=== PATIENT | female | born 1935 | race Two or more races ===

== ENCOUNTER 2021-07-17 12:36 | Inpatient (IN) | payer MEDICARE, OTHER ==
[~2021-07-17] VITALS: Ht 170.2 cm; Wt 79.4 kg
--- NOTE | 2021-07-17 12:40 | NUR ---
[id number], from [facility], low bp 70's, BS 146. on room air, breathing evenly and unlabored. Connected to the monitor and pulse ox. Kept comfortable, will continue to monitor accordingly.
--- NOTE | 2021-07-17 13:00 | NUR ---
IV LINE ESTABLISHED BLOOD DRAWN AND SENT TO LAB.
[2021-07-17 13:19] LABS: BASOPHILS % (AUTO) 0.2 % (0.0-2.0); EOSINOPHILS % (AUTO) 3.5 % (0.0-6.0); HEMATOCRIT 37 % (33-45); HEMOGLOBIN 11.7 g/dL (11.5-14.8); LYMPHOCYTES # (AUTO) 0.9 K/uL (0.8-4.8); LYMPHOCYTES % (AUTO) 11.5 % (20.0-44.0); MEAN CORPUSCULAR HGB CONC 32 g/dl (31.0-36.0); MEAN CORPUSCULAR VOLUME 90 fL (82-100); MONOCYTES # (AUTO) 0.6 K/uL (0.1-1.30); MONOCYTES % (AUTO) 7.6 % (2.0-12.0); NEUTROPHILS # (AUTO) 6.3 K/uL (1.8-8.9); NEUTROPHILS % (AUTO) 77.2 % (43.0-81.0); PLATELET COUNT (AUTO) 146 K/uL (150-450); RED BLOOD CELL COUNT(AUTO) 4.09 MIL/uL (4.0-5.2); WHITE BLOOD COUNT (AUTO) 8.2 K/uL (4.3-11.0)
[2021-07-17 13:38] LABS: ALANINE AMINOTRANSFERASE 20 U/L (12-78); ALBUMIN 2.9 g/dL (3.4-5.0); ALKALINE PHOSPHATASE 64 U/L (46-116); ASPARTATE AMINOTRANSFERASE 19 U/L (15-37); BILIRUBIN,DIRECT 0.1 mg/dL (0.0-0.2); BILIRUBIN,TOTAL 0.5 mg/dL (0.2-1.0); CALCIUM, SERUM 8.8 mg/dL (8.5-10.1); CARBON DIOXIDE 29 mmol/L (21-32); CREATININE 3.4 mg/dL (0.6-1.3); GLUCOSE 118 mg/dL (74-106); TOTAL PROTEIN, SERUM 7.3 g/dL (6.4-8.2)
[2021-07-17 13:41] LABS: CHLORIDE 128 mmol/L (98-107); POTASSIUM 6.4 mmol/L (3.5-5.1); SODIUM SERUM 165 mmol/L (136-145); UREA NITROGEN, BLOOD 208 mg/dL (7-18)
--- NOTE | 2021-07-17 13:44 | NUR ---
covid swab collected and sent to lab.
--- NOTE | 2021-07-17 13:55 | NUR ---
urine collected and sent to lab.
[2021-07-17] MEDS ORDERED: IV NS 0.9% 500 ML BAG IV ONE (14:00)
[2021-07-17] MEDS ORDERED: IV 1/2NS 1000 ML 1,000 ML IV ONE (14:00)
--- NOTE | 2021-07-17 14:02 | NUR ---
PT IS WHEELED TO CT SCAN VIA [facility].
[2021-07-17 14:04] LABS: BILIRUBIN,URINE Negative (NEGATIVE); COLOR,URINE YELLOW (YELLOW); LEUKOCYTE ESTERASE ,URINE Negative (NEGATIVE); NITRITE, URINE Negative (NEGATIVE); PROTEIN,URINE Negative (NEGATIVE); UGLUCOSE Negative (NEGATIVE); UROBILINOGEN,URINE 0.2 EU/dL (0.2)
[2021-07-17] MEDS ORDERED: APIX2.5T GT (14:04)
[2021-07-17] MEDS ORDERED: LACT100027 GT (14:04)
[2021-07-17] MEDS ORDERED: SPIR25TA6 GT (14:04)
[2021-07-17] MEDS ORDERED: METO2.5T2 GT (14:04)
[2021-07-17] MEDS ORDERED: MAGN400O6 GT (14:04)
[2021-07-17] MEDS ORDERED: CARV25TA2 GT (14:04)
[2021-07-17] MEDS ORDERED: OMEP20CA15 GT (14:04)
[2021-07-17] MEDS ORDERED: LOSA25TA27 GT (14:04)
[2021-07-17] MEDS ORDERED: MULT-447 GT (14:04)
[2021-07-17] MEDS ORDERED: POTA20PA3 GT (14:04)
[2021-07-17] MEDS ORDERED: ALLA266C2 TP ×2 (14:04)
[2021-07-17] MEDS ORDERED: FURO-144 GT (14:04)
[2021-07-17] MEDS ORDERED: ACET-868 GT (14:04)
[2021-07-17] MEDS ORDERED: ATOR40TA GT (14:04)
[2021-07-17] MEDS ORDERED: NA P133E RC (14:04)
[2021-07-17] MEDS ORDERED: BALS60OI TP (14:04)
[2021-07-17] MEDS ORDERED: BISA10SU11 RC (14:04)
[2021-07-17] MEDS ORDERED: SENN-261 GT (14:04)
[2021-07-17] MEDS: CARVEDILOL 12.5 MG TABLET GT SCH (17:00)
[2021-07-17] MEDS ORDERED: ACETAMINOPHEN 650 MG/20.3 ML UDC GT PRN (17:00)
--- NOTE | 2021-07-17 17:12 | NUR ---
report given to [place] for jessica.
[2021-07-17] MEDS ORDERED: DEXTROSE 50%-WATER 50 ML DISP.SYRIN IV PRN (17:30)
--- NOTE | 2021-07-17 17:44 | NUR ---
wheeled patient via gurney accompanied by RN and emt in no distress. RN assigned to patient at bedside to assume care.
[2021-07-17] MEDS ORDERED: BLOOD SUGAR DIAGNOSTIC 1 EACH STRIP IN SCH (18:00)
--- NOTE | 2021-07-17 18:12 | NUR ---
PER ATTENDING DOCTOR. HOLD BP MEDS IF SYSTOLIC IS BELOW 110
[2021-07-17] MEDS: FAMOTIDINE/PF INJ 20 MG/2 ML VIAL IV SCH (18:21)
[2021-07-17] MEDS: APIXABAN 2.5 MG TABLET GT SCH (18:22)
[2021-07-17] MEDS: ATORVASTATIN 40 MG TABLET GT SCH (18:23)
[2021-07-17] MEDS: IV D5/0.45 NACL 1,000 ML IV SCH (18:23)
[2021-07-17] MEDS: BLOOD SUGAR DIAGNOSTIC 1 EACH STRIP IN SCH (18:49)
--- NOTE | 2021-07-17 19:55 | NUR ---
spoke with granddaughter anna for update
[2021-07-17 20:00] VITALS: BP 104/79
--- NOTE | 2021-07-17 20:14 | NUR ---
RN NOTES, CALLED DR TRACY Mcdaniel REGARDING HIGH POTASSIUM FOR THE PATIENT 6.[address] REPLIED WITH ORDER FOR KAYEXALATE 30MG VIA GT AND ALSO START GT FEEDING SAME IN FACILITY, ORDERS NOTED AND CARRIED OUT.
[2021-07-17] MEDS ORDERED: SODIUM POLYSTYRENE SULFONATE 15 G/60 ML BOTTLE GT ONE (20:30)
[2021-07-17] MEDS ORDERED: SODIUM POLYSTYRENE SULFONATE 15 G/60 ML BOTTLE ONE (21:00)
--- NOTE | 2021-07-17 21:05 | NUR ---
RN NOTE: DIETARY CONSULT NOTIFIED DR CASTELAN, THAT ORDERS FOR CONTINUING SNF GTUBE FEEDING UNABLE TO BE COMPLETE, PT IS ON ISOSOURCE 1.5 NO REPLACEMENT AVAILABLE. PER MD, ORDERS TO WAIT FOR DIETARY CONSULT TOMORROW, PENDING
[2021-07-18] VITALS: BP 102/81
[2021-07-18] MEDS: BLOOD SUGAR DIAGNOSTIC 1 EACH STRIP IN SCH ×5 (01:03→23:43)
[2021-07-18] MEDS: INSULIN REGULAR, HUMAN 100 UNIT/ML 3 ML VIAL SQ PRN ×6 (01:05→23:43)
[2021-07-18] MEDS: IV D5/0.45 NACL 1,000 ML IV SCH (01:40)
[2021-07-18 04:00] VITALS: BP 96/68
--- NOTE | 2021-07-18 04:35 | NUR ---
rn note: notified md garcia regarding pt fluctuating via afib and aflutter no orders at this time, cont to monitor
[2021-07-18] MEDS: FAMOTIDINE/PF INJ 20 MG/2 ML VIAL IV SCH ×2 (05:46→17:05)
[2021-07-18 06:55] LABS: BASOPHILS % (AUTO) 0.1 % (0.0-2.0); EOSINOPHILS % (AUTO) 3.2 % (0.0-6.0); HEMATOCRIT 36 % (33-45); HEMOGLOBIN 11.8 g/dL (11.5-14.8); LYMPHOCYTES # (AUTO) 0.7 K/uL (0.8-4.8); LYMPHOCYTES % (AUTO) 11.9 % (20.0-44.0); MEAN CORPUSCULAR HGB CONC 32 g/dl (31.0-36.0); MEAN CORPUSCULAR VOLUME 90 fL (82-100); MONOCYTES # (AUTO) 0.5 K/uL (0.1-1.30); MONOCYTES % (AUTO) 7.5 % (2.0-12.0); NEUTROPHILS # (AUTO) 4.8 K/uL (1.8-8.9); NEUTROPHILS % (AUTO) 77.3 % (43.0-81.0); PLATELET COUNT (AUTO) 140 K/uL (150-450); RED BLOOD CELL COUNT(AUTO) 4.05 MIL/uL (4.0-5.2); WHITE BLOOD COUNT (AUTO) 6.2 K/uL (4.3-11.0)
[2021-07-18 07:02] LABS: CALCIUM, SERUM 8.7 mg/dL (8.5-10.1); CARBON DIOXIDE 31 mmol/L (21-32); CREATININE 2.7 mg/dL (0.6-1.3); GLUCOSE 105 mg/dL (74-106); PHOSPHORUS 5.1 mg/dL (2.5-4.9); POTASSIUM 3.7 mmol/L (3.5-5.1)
[2021-07-18 07:09] LABS: SODIUM SERUM 165 mmol/L (136-145)
[2021-07-18 07:10] LABS: CHLORIDE 127 mmol/L (98-107); UREA NITROGEN, BLOOD 160 mg/dL (7-18)
--- NOTE | 2021-07-18 07:10 | NUR ---
RN CLOSING NOTES PT REMAINS IN BED, NOT ALERT/DOES NOT OPEN EYES. PT DOES MOVE EXTREMETIES ASIDE FROM LEFT ARM, EXT IS FLACCID. NO S/S OF DISTRESS NOTED. IN STABLE CONDITION, ALL ORDERS CARRIED OUT. SAFETY MEASURES IN PLACE. HOB ELEVATED. SIDE RAILS UP X2. BED LOCKED IN LOWEST POSITION. Addendum: 07/18/21 at 0743 by IAN MERCADO RN RN CLOSING NOTES PT REMAINS IN BED, NOT ALERT/DOES NOT OPEN EYES. PT DOES MOVE EXTREMITIES ASIDE FROM LEFT ARM, EXT IS FLACCID. NO S/S OF DISTRESS NOTED. IN STABLE CONDITION, ALL ORDERS CARRIED OUT. SAFETY MEASURES IN PLACE. HOB ELEVATED. SIDE RAILS UP X2. BED LOCKED IN LOWEST POSITION. ENDORSED CARE TO DAY SHIFT RN FOR CONTINUATION OF CARE
--- NOTE | 2021-07-18 07:22 | NUR ---
RN OPENING NOTES; PT IN BED SLEEPING IN SUPINE POS. PT IS NON VERBAL, ON NC 3L 02 SAT @95%. PT ON D5 1/2 NS@125ML/HR, PATENT WITH NO SIGNS OF INFILTRATION. HOLD BP MEDICATION IF SBP <110. SAFETY MEASURES RENDERED. BED IN LOWEST POS. LOCKED, WITH CALL LIGHT WITHIN REACH. WILL CONTINUE TO MONITOR.
[2021-07-18 08:00] VITALS: BP 115/75
[2021-07-18] MEDS ORDERED: IV D5/0.45 NACL 1,000 ML IV PRN (08:13)
--- NOTE | 2021-07-18 08:23 | NUR ---
WOUND CARE CONSULT: REVIEWED CHART, NURSING DOCUMENTATION AND PHOTO WHICH INDICATES SACRAL SCARRING AND RASH WITH MOISTURE ASSOCIATED SKIN DAMAGE OVER SCARRING, PRESENT ON ADMISSION. RECOMMENDATIONS MADE FOR SKIN PROTECTION. DISCUSSED WITH NURSING STAFF. MD IN AGREEMENT WITH PLAN OF CARE. PT IS ON ISLE ISOFLEX LOW AIRLOSS BED.
[2021-07-18] MEDS ORDERED: Z GUARD REMEDY 2 OZ OINT TP PRN (08:30)
[2021-07-18] MEDS: CARVEDILOL 12.5 MG TABLET GT SCH ×2 (09:00→16:48)
[2021-07-18] MEDS: APIXABAN 2.5 MG TABLET GT SCH ×2 (09:05→17:06)
[2021-07-18] MEDS: CLOTRIMAZOLE 1% 15 GM TUBE TP SCH ×2 (09:08→17:07)
[2021-07-18] MEDS: Z GUARD REMEDY 2 OZ OINT TP SCH (09:08)
--- NOTE | 2021-07-18 09:52 | NUR ---
RN NOTES CRITICAL LABS REPORTED SODIUM 165, CHLORIDE 127, BUN 160, MAG. 4. MD DR. CASTELAN NOTIFIED. LABS TRENDING DOWN. AWAITING NEW ORDERS.
[2021-07-18 10:14] LABS: BAND % (MANUAL) 1 % (0.0-5.0); EOSINOPHILS % (MANUAL) 1 % (0-4); LYMPHOCYTES % (MANUAL) 14 % (16-48); MONOCYTES % (MANUAL) 7 % (0-11.0); NEUTROPHILS % (MANUAL) 77 (42-76)
--- NOTE | 2021-07-18 11:29 | NUR ---
RN NOTES; ACCUCHECK DONE RESULTS 86. NO COVERAGE NEEDED PER SLIDING SCALE.
[2021-07-18] MEDS: IV D5W 1,000 ML IV PRN ×2 (11:45→23:27)
[2021-07-18] MEDS: NEPRO 1,000 ML BOTTLE GT SCH (11:52)
[2021-07-18 12:00] VITALS: BP 101/70
[2021-07-18] MEDS ORDERED: MISCELLANEOUS MED 1 EA EA GT ONE (13:00)
[2021-07-18 16:00] VITALS: BP 108/45
[2021-07-18] MEDS: ATORVASTATIN 40 MG TABLET GT SCH (17:09)
--- NOTE | 2021-07-18 17:21 | NUR ---
RN NOTES ACCUCHECK DONE WITH RESULTS OF 124. NO INSULIN NEEDED PER SLIDING SCALE.
--- NOTE | 2021-07-18 18:26 | NUR ---
RN CLOSING NOTES; PT SLEEPING. PT IS NON VERBAL, ON NC 3L 02 SAT @96-97%. PT ON DSW @100ML/HR, PATENT WITH NO SIGNS OF INFILTRATION. HOLD BP MEDICATION PER MD. GT TUBE FEEDING NEPRO @20ML/HR, ADVANCE TO 45ML/HR. SAFETY MEASURES RENDERED. BED IN LOWEST POS. LOCKED, WITH CALL LIGHT WITHIN REACH. ENDORSED TO FACTORER IN STABLE CONDITION.
[2021-07-18 20:00] VITALS: BP 116/66
--- NOTE | 2021-07-18 20:45 | NUR ---
RN NOTE RECEIVED PT IN BED, SLEEPING, RESPONSE BY MOANING TO VERBAL AND TOUCH STIMULI. ON O2 AT 4L, NOT IN ANY DISTRESS. TELE MONITOR SHOWS AFIB ON HR 90S. GT PATENT, AUSCULTATED FOR PLACEMENT. ON NEPRO FEEDING, NO RESIDUALS NOTED. ADVANCED TO 35CC/HR. PT ON D5W AT 100 ML/HR. ALL SAFETY MEASURES IN PLACE. WILL CONTINUE TO MONITOR.
[2021-07-19] VITALS (8 sets, daily range): BP systolic 84–121; BP diastolic 28–77
[2021-07-19] MEDS: FAMOTIDINE/PF INJ 20 MG/2 ML VIAL IV SCH ×2 (04:55→16:13)
[2021-07-19] MEDS: BLOOD SUGAR DIAGNOSTIC 1 EACH STRIP IN SCH ×3 (05:07→17:21)
[2021-07-19] MEDS: INSULIN REGULAR, HUMAN 100 UNIT/ML 3 ML VIAL SQ PRN (05:07)
[2021-07-19 07:14] LABS: BASOPHILS % (AUTO) 0.2 % (0.0-2.0); EOSINOPHILS % (AUTO) 1.2 % (0.0-6.0); HEMATOCRIT 36 % (33-45); HEMOGLOBIN 11.7 g/dL (11.5-14.8); LYMPHOCYTES # (AUTO) 0.7 K/uL (0.8-4.8); LYMPHOCYTES % (AUTO) 10.1 % (20.0-44.0); MEAN CORPUSCULAR HGB CONC 32 g/dl (31.0-36.0); MEAN CORPUSCULAR VOLUME 90 fL (82-100); MONOCYTES # (AUTO) 0.3 K/uL (0.1-1.30); MONOCYTES % (AUTO) 4.8 % (2.0-12.0); NEUTROPHILS # (AUTO) 5.8 K/uL (1.8-8.9); NEUTROPHILS % (AUTO) 83.7 % (43.0-81.0); PLATELET COUNT (AUTO) 140 K/uL (150-450); RED BLOOD CELL COUNT(AUTO) 4.04 MIL/uL (4.0-5.2)
--- NOTE | 2021-07-19 07:15 | NUR ---
RN NOTE PT REMAINS IN BED, NOT IN ANY DISTRESS. CONTINUE ON O2 THERAPY. GT FEEDING TOLERATING WELL, INCREASED RATE TO 45ML/HR ORDERED AT MIDNIGHT. FLUSHES GT WITH WATER ORDERED, KEPT HOB ELEVATED AT ALL TIMES. NO SIGNS OF ASPIRATION NOTED. CONTINUE ON IVF D5W AT 100ML/HR, NO SIGNS OF INFILTRATION NOTED. MCGILL INDWELLING WELL. ENDORSED TO NEXT SHIFT NURSE FOR FÉLIX.
--- NOTE | 2021-07-19 07:45 | NUR ---
RN NOTE PATIENT IS IN BED WITH HOB AT SEMI FOWLERS POSITION. PATIENT IS ON 3L NC WITH NO SIGNS OF LABORED BREATHING. PATIENT IS NONVERBAL. RHAND 22 AND LFA 18 ARE PATENT AND INTACT. BED IS LOCKED IN THE LOWEST POSITION, 3 GUARD RAILS RAISED, CALL HUITRON WITHIN REACH, AND ALL HOSPITAL SAFETY PRECAUTIONS ARE BEING FOLLOWED. WILL CONTINUE TO MONITOR THROUGHOUT SHIFT.
[2021-07-19 07:57] LABS: POTASSIUM 2.9 mmol/L (3.5-5.1); SODIUM SERUM 155 mmol/L (136-145)
[2021-07-19 07:58] LABS: CALCIUM, SERUM 8.3 mg/dL (8.5-10.1); CARBON DIOXIDE 30 mmol/L (21-32); CHLORIDE 117 mmol/L (98-107); GLUCOSE 113 mg/dL (74-106); MAGNESIUM 3.4 mg/dL (1.8-2.4); PHOSPHORUS 3.9 mg/dL (2.5-4.9); UREA NITROGEN, BLOOD 103 mg/dL (7-18)
[2021-07-19] MEDS: APIXABAN 2.5 MG TABLET GT SCH ×2 (08:45→16:16)
[2021-07-19] MEDS: CARVEDILOL 12.5 MG TABLET GT SCH ×2 (08:47→13:31)
[2021-07-19] MEDS: CLOTRIMAZOLE 1% 15 GM TUBE TP SCH ×2 (08:48→16:14)
[2021-07-19] MEDS: Z GUARD REMEDY 2 OZ OINT TP SCH (08:48)
[2021-07-19 09:40] LABS: EOSINOPHILS % (MANUAL) 2 % (0-4); LYMPHOCYTES % (MANUAL) 9 % (16-48); MONOCYTES % (MANUAL) 4 % (0-11.0); MYELOCYTES % 2 % (0-0); NEUTROPHILS % (MANUAL) 83 (42-76)
[2021-07-19] MEDS ORDERED: POTASSIUM CHLORIDE 20 MEQ TAB.PRT.SR PO SCH (10:00)
[2021-07-19] MEDS: IV D5W 1,000 ML IV PRN (11:15)
[2021-07-19] MEDS ORDERED: POTASSIUM CHLORIDE 20 MEQ POWDER PACKET PO ONE (12:00)
[2021-07-19] MEDS ORDERED: POTASSIUM CHLORIDE 10 MEQ TABLET.SA PO ONE (12:00)
[2021-07-19] MEDS ORDERED: POTASSIUM CL. PREMIX PERIPHER. 50 ML IV SCH (12:30)
[2021-07-19] MEDS: POTASSIUM CHLORIDE 20 MEQ POWDER PACKET PO SCH ×2 (12:50→13:29)
--- NOTE | 2021-07-19 13:39 | NUR ---
RN NOTE ORIGINALLY HELD 0900 DOSE OF CARVEDILOL TO LOW BP. PATIENT'S HR IS 130 AND BP IS 121/70 AT 1300. UNDID NONADMIN FOR 0900 DOSE AND ADMINISTERED NOW. WILL ENDORSE TO QUALITY TECH TO GIVE 1700 DOSE AND 1999. Addendum: 07/19/21 at 1341 by ZULY FERNANDEZ RN *AT 1999
[2021-07-19] MEDS: METOPROLOL TARTRATE 25 MG TABLET PO SCH (16:14)
[2021-07-19] MEDS: NEPRO 1,000 ML BOTTLE GT SCH (17:07)
[2021-07-19] MEDS: ATORVASTATIN 40 MG TABLET GT SCH (17:11)
--- NOTE | 2021-07-19 18:45 | NUR ---
RN NOTE PATIENT IS IN BED WITH HOB AT SEMI FOWLERS POSITION. PATIENT IS ON 3L NC WITH NO SIGNS OF LABORED BREATHING. PATIENT IS NONVERBAL. RHAND 22 AND LFA 18 ARE PATENT AND INTACT. BED IS LOCKED IN THE LOWEST POSITION, 3 GUARD RAILS RAISED, CALL HUITRON WITHIN REACH, AND ALL HOSPITAL SAFETY PRECAUTIONS ARE BEING FOLLOWED. ALL DUE MEDS GIVEN AND PATIENT REMAINED STABLE THROUGHOUT SHIFT. WILL ENDORSE TO JAVA DEVELOPER CONSULTANT RN.
--- NOTE | 2021-07-19 19:30 | NUR ---
RN NOTE RECEIVED PATIENT IN BED. NONVERBAL. ON OXYGEN 3L/MIN VIA NASAL CANNULA, PATIENT KEEPS REMOVING IT. EDUCATED HER ON IMPORTANCE. RESPIRATIONS ARE EVEN. NO S/S PAIN NOTED. EXTERNAL TELE MONITOR READS UNCONTROLLED AFIB HR 108. INN O APPARENT DISTRESS. IV ACCESS IN LFA#18 RUNNING D5W@50ML/HR. RIGHT HAND #20 PATENT AND SALINE LOCKED. GTUBE IS PRESENT, NO RESIDUAL, NEPRO @40ML. FLUSHED WITH 250CC, NO RESISTANCE. MCGILL CATHETER IS PRESENT, DRAINING TO GRAVITY, URINE IS SILVIA. BED IS LOW AND LOCKED, HOB ELEVATED IN SEMI FOWLERS, SIDE RIAL SUP X2, CALL LIGHT WITHIN REACH. WILL CONTINUE TO MONITOR THROUGHOUT SHIFT.
[2021-07-19] MEDS ORDERED: CARVEDILOL 12.5 MG TABLET GT SCH (21:00)
[2021-07-19] MEDS ORDERED: IV NS 0.9% 500 ML IV ONE (21:30)
--- NOTE | 2021-07-19 21:38 | NUR ---
RN NOTE INFORMED DR. CASTELAN THAT PATIENT IS HYPOTENSIVE BP 86/69 HR 108. TELEPHONE ORDER FOR 500NS BOLUS ONCE. ORDER READ BACK NOTED AND CARRIED OUT.
[2021-07-20] VITALS: BP 103/63
[2021-07-20] MEDS: BLOOD SUGAR DIAGNOSTIC 1 EACH STRIP IN SCH ×4 (00:48→17:40)
[2021-07-20] MEDS: INSULIN REGULAR, HUMAN 100 UNIT/ML 3 ML VIAL SQ PRN ×2 (00:51→05:40)
[2021-07-20 04:00] VITALS: BP 106/70
[2021-07-20] MEDS: FAMOTIDINE/PF INJ 20 MG/2 ML VIAL IV SCH ×2 (05:42→17:15)
[2021-07-20] MEDS: IV D5W 1,000 ML IV PRN (06:20)
[2021-07-20 06:33] LABS: BASOPHILS % (AUTO) 0.1 % (0.0-2.0); EOSINOPHILS % (AUTO) 1.1 % (0.0-6.0); HEMATOCRIT 31 % (33-45); HEMOGLOBIN 10.2 g/dL (11.5-14.8); LYMPHOCYTES # (AUTO) 0.6 K/uL (0.8-4.8); MEAN CORPUSCULAR HGB CONC 34 g/dl (31.0-36.0); MEAN CORPUSCULAR VOLUME 88 fL (82-100); MONOCYTES # (AUTO) 0.5 K/uL (0.1-1.30); MONOCYTES % (AUTO) 6.4 % (2.0-12.0); NEUTROPHILS # (AUTO) 6.8 K/uL (1.8-8.9); NEUTROPHILS % (AUTO) 84.4 % (43.0-81.0); PLATELET COUNT (AUTO) 116 K/uL (150-450); RED BLOOD CELL COUNT(AUTO) 3.47 MIL/uL (4.0-5.2)
--- NOTE | 2021-07-20 06:45 | NUR ---
RN NOTE PATIENT RESTING IN BED. NONVERBAL. REMAINS ON OXYGEN 3L/MIN VIA NASAL CANNULA, CONTINUES TO REMOVE NASAL CANNULA THROUGHOUT SHIFT. NO PAIN. TELE MONITOR CONTINUES TO BE UNCONTROLLED AFIB . NO DISTRESS. LFA#18 RUNNING D5W@50ML/HR. GTUBE RUNNING NEPRO @40ML. FLUSHED WITH 250CC Q4HR. PATIENT HAD AN EPISODE HYPOTENSION AT BEGINING OF SHIFT, 500NS BOLUS GIVEN. MCGILL CATHETER OUTPUT 550CC. BED REMAINS LOW AND LOCKED, HOB ELEVATED IN SEMI FOWLERS, SIDE RIALS UP X2, CALL LIGHT WITHIN REACH. WILL ENDORSE TO ONCOMING SHIFT.
[2021-07-20 07:04] LABS: CARBON DIOXIDE 30 mmol/L (21-32); CHLORIDE 112 mmol/L (98-107); POTASSIUM 3.3 mmol/L (3.5-5.1); SODIUM SERUM 149 mmol/L (136-145)
[2021-07-20 07:32] LABS: CALCIUM, SERUM 7.9 mg/dL (8.5-10.1); CREATININE 1.7 mg/dL (0.6-1.3); GLUCOSE 118 mg/dL (74-106)
[2021-07-20 07:34] LABS: UREA NITROGEN, BLOOD 80 mg/dL (7-18)
[2021-07-20 08:00] VITALS: BP 91/49
[2021-07-20] MEDS: APIXABAN 2.5 MG TABLET GT SCH ×2 (08:23→17:16)
[2021-07-20] MEDS: METOPROLOL TARTRATE 25 MG TABLET PO SCH ×3 (08:23→17:00)
[2021-07-20] MEDS: CLOTRIMAZOLE 1% 15 GM TUBE TP SCH ×2 (08:24→17:14)
[2021-07-20] MEDS: Z GUARD REMEDY 2 OZ OINT TP SCH (08:24)
[2021-07-20] MEDS ORDERED: POTASSIUM CL. PREMIX PERIPHER. 50 ML IV SCH (10:00)
[2021-07-20 12:00] VITALS: BP 105/57
[2021-07-20 16:00] VITALS: BP 97/65
[2021-07-20] MEDS: ATORVASTATIN 40 MG TABLET GT SCH (17:14)
[2021-07-20] MEDS: NEPRO 1,000 ML BOTTLE GT SCH (17:22)
--- NOTE | 2021-07-20 18:46 | NUR ---
RN NOTE PATIENT IS IN BED WITH HOB AT SEMI FOWLERS POSITION. PATIENT IS ON 3L NC WITH NO SIGNS OF LABORED BREATHING. PATIENT IS NONVERBAL. RHAND 22 AND LFA 18 ARE PATENT AND INTACT. BED IS LOCKED IN THE LOWEST POSITION, 3 GUARD RAILS RAISED, CALL HUITRON WITHIN REACH, AND ALL HOSPITAL SAFETY PRECAUTIONS ARE BEING FOLLOWED. ALL DUE MEDS GIVEN AND PATIENT REMAINED STABLE THROUGHOUT SHIFT. WILL ENDORSE TO DESIGN CENTER CONSULTANT RN.
--- NOTE | 2021-07-20 19:30 | NUR ---
RN NOTE RECEIVED PATIENT IN BED, CONFUSED, NON VERBAL, IN NO S/SX OF ACUTE DISTRESS AT THIS TIME, BREATHING EVEN AND UNLABORED, SATURATION AT 100% ON 3L VIA NC, AFIB ON THE MONITOR, HR IS 98. NOTED IV SITE AT R HAND 22G, AND LFA 18G, ALL HUBS PATENT AND FLUSHING WELL, NO S/S OF INFECTION OR INFILTRATION WITH IV FLUID OF D5W INFUSING AT 50 ML/HR. NOTED GTUBE INTACT POSITIVE PLACEMENT NOTED, NO RESIDUAL, WITH TUBE FEEDING OF NEPRO AT 45 ML/HR. SAFETY MEASURES IMPLEMENTED. PATIENT BED ALARM IS ON. HEAD OF BED ELEVATED. BED IS LOCKED, IN LOWEST POSITION AND SIDE RAILS UP. CALL LIGHT WITHIN REACH OF THE PATIENT. WILL CONTINUE TO MONITOR AND REASSESS FOR ANY CHANGES. Addendum: 07/21/21 at 0149 by ZAYRA EVANS RN MCGILL CATHETER CONNECTED TO URINE BAG IN PLACE, DRAINING TO A CLOUDY YELLOW URINE.
[2021-07-20 20:00] VITALS: BP 98/69
[2021-07-20] MEDS: GENTAMICIN OPTH SOLN 0.3% 5 ML BOTTLE EACHEYE SCH (21:07)
[2021-07-21] VITALS: BP 100/50
[2021-07-21] MEDS: BLOOD SUGAR DIAGNOSTIC 1 EACH STRIP IN SCH ×3 (00:35→11:11)
[2021-07-21 04:00] VITALS: BP 98/54
[2021-07-21] MEDS: FAMOTIDINE/PF INJ 20 MG/2 ML VIAL IV SCH (05:44)
[2021-07-21] MEDS: IV D5W 1,000 ML IV PRN (05:46)
[2021-07-21 06:36] LABS: CARBON DIOXIDE 30 mmol/L (21-32); CHLORIDE 109 mmol/L (98-107); CREATININE 1.4 mg/dL (0.6-1.3); GLUCOSE 107 mg/dL (74-106); POTASSIUM 3.2 mmol/L (3.5-5.1); SODIUM SERUM 145 mmol/L (136-145); UREA NITROGEN, BLOOD 60 mg/dL (7-18)
[2021-07-21 07:06] LABS: EOSINOPHILS % (AUTO) 1.5 % (0.0-6.0); HEMATOCRIT 30 % (33-45); HEMOGLOBIN 9.8 g/dL (11.5-14.8); LYMPHOCYTES # (AUTO) 0.7 K/uL (0.8-4.8); MEAN CORPUSCULAR HGB CONC 33 g/dl (31.0-36.0); MEAN CORPUSCULAR VOLUME 88 fL (82-100); MONOCYTES # (AUTO) 0.5 K/uL (0.1-1.30); MONOCYTES % (AUTO) 6.8 % (2.0-12.0); NEUTROPHILS # (AUTO) 6.6 K/uL (1.8-8.9); NEUTROPHILS % (AUTO) 82.7 % (43.0-81.0); PLATELET COUNT (AUTO) 114 K/uL (150-450); RED BLOOD CELL COUNT(AUTO) 3.37 MIL/uL (4.0-5.2)
--- NOTE | 2021-07-21 08:00 | NUR ---
PREPRESS OPERATOR OPENING NOTE RECEIVED PATIENT LYING IN BED, RESTING. NONVERBAL. ON 3L OXYGEN VIA NASAL CANULA - TOLERATING WELL. NO SOB NOTED. NO DISTRESS/DISCOMFORT NOTED. MCGILL CATH NOTED - INTACT, DRAINING CLEAR, YELLOW URINE TO GRAVITY. IV ACCESS TO RIGHT HAND #22 AND LEFT FA #18 - BOTH PATENT AND INTACT. LEFT IV RUNNING D5W @ 50ML/HR. SAFETY MEASURES IN PLACE. CALL LIGHT WITHIN REACH. WILL CONTINUE TO MONITOR.
[2021-07-21] MEDS: GENTAMICIN OPTH SOLN 0.3% 5 ML BOTTLE EACHEYE SCH ×2 (08:09→12:09)
[2021-07-21] MEDS: CLOTRIMAZOLE 1% 15 GM TUBE TP SCH (08:10)
[2021-07-21] MEDS: Z GUARD REMEDY 2 OZ OINT TP SCH (08:10)
[2021-07-21] MEDS: METOPROLOL TARTRATE 25 MG TABLET PO SCH ×2 (08:11→12:08)
[2021-07-21] MEDS: APIXABAN 2.5 MG TABLET GT SCH (08:14)
[2021-07-21 08:15] VITALS: BP 109/68
[2021-07-21] MEDS: POTASSIUM CHLORIDE 20 MEQ TAB.PRT.SR PO SCH ×2 (10:36→11:11)
[2021-07-21 12:09] VITALS: BP 137/109
[2021-07-21 16:00] VITALS: BP 89/60
--- NOTE | 2021-07-21 16:14 | NUR ---
TRACTOR MECHANIC APPRENTICEHEAVY EQUIPMENT SUPERVISOR NOTE PATIENT DISCHARGED VIA AMBULANCE @ 1611. STABLE, NONVERBAL. ON 2L OXYGEN VIA NASAL CANULA - TOLERATING WELL. NO SOB NOTED. NO DISTRESS/DISCOMFORT NOTED. MCGILL CATH NOTED - INTACT, DRAINING CLEAR, YELLOW URINE TO GRAVITY - EMPTIED BEFORE DISCHARGE, LEFT IN PER FACILITY'S REQUEST. IV ACCESS TO RIGHT HAND #22 AND LEFT FA #18 - BOTH REMOVED. ALL DISCHARGE PAPERWORK AND EXITCARE GIVEN TO EMT'S FOR RECEIVING FACILITY. REPORT GIVEN TO EMILY. WRISTBAND REMOVED. PATIENT ACCOMPANIED TO LOBBY VIA [facility] BY EMT'S. MD AND CHARGE NURSE AWARE OF DISCHARGE.
== END 2021-07-21 16:28 | DRG 682 ==
LOC: ER 12:49 → TELE1 16:26
PROVIDERS: ADMIT Legal Medicine; ATTEND Legal Medicine
DX: N17.9 Acute kidney failure, unspecified (principal); G92 Toxic encephalopathy; I50.32 Chronic diastolic (congestive) heart failure; E87.0 Hyperosmolality and hypernatremia; I48.20 Chronic atrial fibrillation, unspecified; I42.9 Cardiomyopathy, unspecified; I11.0 Hypertensive heart disease with heart failure; F03.90 Unspecified dementia, unspecified severity, without behavioral disturbance, psychotic disturbance, mood disturbance, and anxiety; I25.10 Atherosclerotic heart disease of native coronary artery without angina pectoris; Z86.73 Personal history of transient ischemic attack (TIA), and cerebral infarction without residual deficits; E78.5 Hyperlipidemia, unspecified; E87.5 Hyperkalemia; R13.10 Dysphagia, unspecified; Z79.01 Long term (current) use of anticoagulants; Z93.1 Gastrostomy status; Z20.822 Contact with and (suspected) exposure to COVID-19; E86.0 Dehydration
CPT/HCPCS: 36415; 70450-TC; 71045-TC; 76770-TC; 80048-TC; 80076-TC; 82962-TC; 83605-TC; 83735-TC; 84100-TC; 84484-TC; 85025-TC; 85730-TC; 87040-TC; 87081-TC; 87086-TC; 93307-TC; G0378; J1815; J3480; J3490; J7030; J7040; J7070; U0003